=== PATIENT | female | born 1985 | race Caucasian/White ===

== ENCOUNTER 2024-12-01 11:11 | Emergency (ER) | payer OTHER, SELFPAY ==
[2024-12-01 11:20] VITALS: BP 125/86; PULSE 125; RESP 20; TEMP 36.6; O2SAT 100
--- NOTE | 2024-12-01 11:31 | ED.GENADULT ---
HPI - General Adult General Chief complaint: Psychiatric Symptoms <Constantin Quezada MD - Last Filed: 12/01/24 17:43> Stated complaint: with crisis, came for medical clearance <Constantin Quezada MD - Last Filed: 12/01/24 17:43> Time Seen by Provider: 12/01/24 11:27 <Constantin Quezada MD - Last Filed: 12/01/24 17:43> History of Present Illness HPI narrative: This is a 39-year-old female sent from [place] for medical clearance. Patient is homeless. She says she does not remember where she lives. She says she has been bouncing from hospital hospital. She has no physical complaints at this time. She denies SI HI or hallucinations. She denies use of drugs or alcohol. <Constantin Quezada MD - Last Filed: 12/01/24 17:43> Related Data Allergies/adverse reactions: Allergies Allergy/AdvReac Type Severity Reaction Status Date / Time No Known Allergies Allergy Verified 12/01/24 11:12 <Constantin Quezada MD - Last Filed: 12/01/24 17:43> [facility] Social History Social History: Social History Substance use type: unknown <Constantin Quezada MD - Last Filed: 12/01/24 17:43> Exam Narrative: APPEARANCE: No apparent distress. Head: atraumatic. EYES: EOMI, NOSE: Atraumatic NECK: Trachea midline RESPIRATORY: No increased rate of breathing CTAB CARDIOVASCULAR: Tachycardic ABDOMINAL: Non-distended MUSCULOSKELETAl: No obvious deformities NEURO: Alert. Moving 4/4 extremities SKIN:: Warm, dry. Normal color PSYCHIATRIC: Normal affect <Constantin Quezada MD - Last Filed: 12/01/24 17:43> Course Course Emergency Course: ZYCH: patient signed out pending acceptance at a psychiatric hospital. Patient has been resting comfortably in bed with no issues. <Constantin Quezada MD - Last Filed: 12/01/24 17:43> ZYCH: patient signed out pending acceptance at a psychiatric hospital. Patient has been resting comfortably in bed with no issues. 1116: Patient is no longer suicidal and would like to leave. She was never suicidal for the physician only for the crisis team. She does not want to wait for crisis to come back out for reassessment and making of a safety plan. <Michael Mosley MD - Last Filed: 12/02/24 11:17> Vital Signs Vital signs: Vital Signs Temperature 97.9 F 12/01/24 11:20 Pulse Rate 125 H 12/01/24 11:20 Respiratory Rate 20 12/01/24 11:20 Blood Pressure 125/86 12/01/24 11:20 Pulse Oximetry 100 12/01/24 11:20 Oxygen Delivery Room Air 12/01/24 11:20 Temperature 98.2 F 12/02/24 07:56 Pulse Rate 98 12/02/24 07:56 Respiratory Rate 16 12/02/24 07:56 Blood Pressure 119/81 12/02/24 07:56 Pulse Oximetry 97 12/02/24 07:56 Oxygen Delivery Room Air 12/01/24 11:20 <Constantin Quezada MD - Last Filed: 12/01/24 17:43> Vital Signs Temperature 97.9 F 12/01/24 11:20 Pulse Rate 125 H 12/01/24 11:20 Respiratory Rate 20 12/01/24 11:20 Blood Pressure 125/86 12/01/24 11:20 Pulse Oximetry 100 12/01/24 11:20 Oxygen Delivery Room Air 12/01/24 11:20 Temperature 98.2 F 12/02/24 07:56 Pulse Rate 98 12/02/24 07:56 Respiratory Rate 16 12/02/24 07:56 Blood Pressure 119/81 12/02/24 07:56 Pulse Oximetry 97 12/02/24 07:56 Oxygen Delivery Room Air 12/01/24 11:20 <Michael Mosley MD - Last Filed: 12/02/24 11:17> Medical Decision Making MDM Narrative Medical decision making narrative: -Course: 39-year-old homeless female presenting for medical clearance. Patient is medically cleared for crisis evaluation. Patient was evaluated by the psych team in she will be admitted voluntarily to a psych hospital. Per the crisis team she is endorsing suicidal ideation without a plan and hallucinations. There was no mention of either these things when questioned directly during my interview. <Constantin Quezada MD - Last Filed: 12/01/24 17:43> Vital Signs Vital Signs: Vital Signs Temperature 97.9 F 12/01/24 11:20 Pulse Rate 125 H 12/01/24 11:20 Respiratory Rate 20 12/01/24 11:20 Blood Pressure 125/86 12/01/24 11:20 Pulse Oximetry 100 12/01/24 11:20 Oxygen Delivery Room Air 12/01/24 11:20 Temperature 98.2 F 12/02/24 07:56 Pulse Rate 98 12/02/24 07:56 Respiratory Rate 16 12/02/24 07:56 Blood Pressure 119/81 12/02/24 07:56 Pulse Oximetry 97 12/02/24 07:56 Oxygen Delivery Room Air 12/01/24 11:20 <Constantin Quezada MD - Last Filed: 12/01/24 17:43> Vital Signs Temperature 97.9 F 12/01/24 11:20 Pulse Rate 125 H 12/01/24 11:20 Respiratory Rate 20 12/01/24 11:20 Blood Pressure 125/86 12/01/24 11:20 Pulse Oximetry 100 12/01/24 11:20 Oxygen Delivery Room Air 12/01/24 11:20 Temperature 98.2 F 12/02/24 07:56 Pulse Rate 98 12/02/24 07:56 Respiratory Rate 16 12/02/24 07:56 Blood Pressure 119/81 12/02/24 07:56 Pulse Oximetry 97 12/02/24 07:56 Oxygen Delivery Room Air 12/01/24 11:20 <Michael Mosley MD - Last Filed: 12/02/24 11:17> Lab Data Result diagrams: 12/01/24 12:23 12/01/24 12:23 <Constantin Quezada MD - Last Filed: 12/01/24 17:43> Labs: Lab Results 12/01/24 Range/Units 12:23 WBC 10.0 (4.5-10.0) K/mm3 RBC 3.57 L (4.2-5.4) M/mm3 Hgb 11.1 L (12.0-15.0) g/dL Hct 33.4 L (37.0-47.0) % MCV 93.6 (80-100) fl MCH 31.1 (26-34) pg MCHC 33.2 (32-36) g/dl RDW 13.4 (11.5-14.5) % Plt Count 321 (150-375) k/mm3 MPV 9.6 (7.4-10.4) fl Immature Gran % (Auto) 1.5 H (0-0.5) % Neut % (Auto) 67.9 (45.5-73.1) % Lymph % (Auto) 18.4 (18.3-44.2) % [place] % (Auto) 6.9 (2.6-8.5) % Eos % (Auto) 4.7 H (0-4.4) % Baso % (Auto) 0.6 (0.2-1.2) % Lymph # (Auto) 1.83 (0.9-3.2) K/mm3 [place] # (Auto) 0.7 H (0.1-0.6) K/mm3 Eos # (Auto) 0.5 H (0-0.3) K/mm3 Baso # (Auto) 0.1 (0.0-0.1) K/mm3 Abs Immat Gran (auto) 0.15 H (0.00-0.031) K/mm3 Absolute Neuts (auto) 6.8 H (1.3-6.7) K/mm3 Absolute Nucleated RBC 0.000 (0.0-0.012) K/mm3 Nucleated RBC % 0.0 (0.0-0.2) % Sodium 139 (137-145) mmol/L Potassium 4.7 (3.4-5.0) mmol/L Chloride 104 (98-107) mmol/L Carbon Dioxide 27 (22-30) mmol/L Anion Gap 8 (4-12) mmol/L BUN 24 H (7-17) mg/dL Creatinine 0.69 L (0.7-1.0) mg/dL Estim Creat Clear Calc 75 ml/min Estimated GFR > 60 (59 - ) Glucose 77 (65-110) mg/dL Calcium 8.9 (8.4-10.2) mg/dL Total Bilirubin 0.4 (0.2-1.3) mg/dL AST 52 H (14-36) U/L ALT 137 H (6-35) U/L Alkaline Phosphatase 151 H (38-126) U/L Total Protein 7.0 (6.3-8.2) g/dL Albumin 4.2 (3.5-5.1) g/dL TSH 0.983 (0.465-4.680) uIU/mL Urine Color Yellow (Yellow) Urine Appearance Clear (Clear) Urine pH 6.0 (5.0-9.0) Ur Specific [place] 1.009 (1.001-1.035) Urine Protein Negative (Negative) mg/dL Urine Glucose (UA) Negative (Negative) mg/dL Urine Ketones Negative (Negative) mg/dL Ur Blood (Man) Negative (Negative) Urine Nitrate Negative (Negative) Urine Bilirubin Negative (Negative) Urine Urobilinogen 0.2 (<2.0) mg/dL Add Ur Microanalysis Reviewed Leukocyte Esterase Rfl 1+ H (Negative) BREA/UL Urine RBC 0-2 (0-2) /hpf Urine WBC 0-5 (0-3) /hpf Ur Squamous Epith Cells Occasional (Few) /hpf Urine Bacteria None seen /hpf Urine Casts 0-2 Salicylates < 1.0 L (2-20) mg/dL Urine Opiates Screen Negative (Negative) Urine Methadone Screen Negative (Negative) Acetaminophen < 10 L (10-30) ug/mL Ur Barbiturates Screen Negative (Negative) Ur Phencyclidine Scrn Negative (Negative) Ur Amphetamine Screen Negative (Negative) U Benzodiazepines Scrn Negative (Negative) Urine Cocaine Screen Negative (Negative) U Cannabinoids Screen Negative (Negative) Ethyl Alcohol < 10 (<10) mg/dL Influenza A (RT-PCR) Negative (Negative) Influenza B (RT-PCR) Negative (Negative) RSV (RT-PCR) Negative (Negative) SARS-CoV-2 RNA (RT-PCR) Negative (Negative) <Constantin Quezada MD - Last Filed: 12/01/24 17:43> Lab Results 12/01/24 Range/Units 12:23 WBC 10.0 (4.5-10.0) K/mm3 RBC 3.57 L (4.2-5.4) M/mm3 Hgb 11.1 L (12.0-15.0) g/dL Hct 33.4 L (37.0-47.0) % MCV 93.6 (80-100) fl MCH 31.1 (26-34) pg MCHC 33.2 (32-36) g/dl RDW 13.4 (11.5-14.5) % Plt Count 321 (150-375) k/mm3 MPV 9.6 (7.4-10.4) fl Immature Gran % (Auto) 1.5 H (0-0.5) % Neut % (Auto) 67.9 (45.5-73.1) % Lymph % (Auto) 18.4 (18.3-44.2) % [place] % (Auto) 6.9 (2.6-8.5) % Eos % (Auto) 4.7 H (0-4.4) % Baso % (Auto) 0.6 (0.2-1.2) % Lymph # (Auto) 1.83 (0.9-3.2) K/mm3 [place] # (Auto) 0.7 H (0.1-0.6) K/mm3 Eos # (Auto) 0.5 H (0-0.3) K/mm3 Baso # (Auto) 0.1 (0.0-0.1) K/mm3 Abs Immat Gran (auto) 0.15 H (0.00-0.031) K/mm3 Absolute Neuts (auto) 6.8 H (1.3-6.7) K/mm3 Absolute Nucleated RBC 0.000 (0.0-0.012) K/mm3 Nucleated RBC % 0.0 (0.0-0.2) % Sodium 139 (137-145) mmol/L Potassium 4.7 (3.4-5.0) mmol/L Chloride 104 (98-107) mmol/L Carbon Dioxide 27 (22-30) mmol/L Anion Gap 8 (4-12) mmol/L BUN 24 H (7-17) mg/dL Creatinine 0.69 L (0.7-1.0) mg/dL Estim Creat Clear Calc 75 ml/min Estimated GFR > 60 (59 - ) Glucose 77 (65-110) mg/dL Calcium 8.9 (8.4-10.2) mg/dL Total Bilirubin 0.4 (0.2-1.3) mg/dL AST 52 H (14-36) U/L ALT 137 H (6-35) U/L Alkaline Phosphatase 151 H (38-126) U/L Total Protein 7.0 (6.3-8.2) g/dL Albumin 4.2 (3.5-5.1) g/dL TSH 0.983 (0.465-4.680) uIU/mL Urine Color Yellow (Yellow) Urine Appearance Clear (Clear) Urine pH 6.0 (5.0-9.0) Ur Specific [place] 1.009 (1.001-1.035) Urine Protein Negative (Negative) mg/dL Urine Glucose (UA) Negative (Negative) mg/dL Urine Ketones Negative (Negative) mg/dL Ur Blood (Man) Negative (Negative) Urine Nitrate Negative (Negative) Urine Bilirubin Negative (Negative) Urine Urobilinogen 0.2 (<2.0) mg/dL Add Ur Microanalysis Reviewed Leukocyte Esterase Rfl 1+ H (Negative) BREA/UL Urine RBC 0-2 (0-2) /hpf Urine WBC 0-5 (0-3) /hpf Ur Squamous Epith Cells Occasional (Few) /hpf Urine Bacteria None seen /hpf Urine Casts 0-2 Salicylates < 1.0 L (2-20) mg/dL Urine Opiates Screen Negative (Negative) Urine Methadone Screen Negative (Negative) Acetaminophen < 10 L (10-30) ug/mL Ur Barbiturates Screen Negative (Negative) Ur Phencyclidine Scrn Negative (Negative) Ur Amphetamine Screen Negative (Negative) U Benzodiazepines Scrn Negative (Negative) Urine Cocaine Screen Negative (Negative) U Cannabinoids Screen Negative (Negative) Ethyl Alcohol < 10 (<10) mg/dL Influenza A (RT-PCR) Negative (Negative) Influenza B (RT-PCR) Negative (Negative) RSV (RT-PCR) Negative (Negative) SARS-CoV-2 RNA (RT-PCR) Negative (Negative) <Michael Mosley MD - Last Filed: 12/02/24 11:17> Discharge Plan Discharge Clinical Impression: Homeless, Suicidal ideation, Hallucinations <Constantin Quezada MD - Last Filed: 12/01/24 17:43> Patient Disposition: Home, Self-Care <Constantin Quezada MD - Last Filed: 12/01/24 17:43> Condition: Stable <Constantin Quezada MD - Last Filed: 12/01/24 17:43> Instructions: Help Prevent Suicide (ED) <Constantin Quezada MD - Last Filed: 12/01/24 17:43> Additional Instructions: Return the ER if you do not feel safe at home, have thoughts of harming herself or others, or you have additional concerns. <Constantin Quezada MD - Last Filed: 12/01/24 17:43> Patient Language: Kinyarwanda <Constantin Quezada MD - Last Filed: 12/01/24 17:43> Follow-up/Referrals: PHYSICIAN NOT ON STAFF,NONSTAFF [Non-Staff] - <Constantin Quezada MD - Last Filed: 12/01/24 17:43>
[2024-12-01 12:39] LABS: Basophils Absolute Auto 0.1 K/mm3 (0.0-0.1); Basophils Percent Auto 0.6 % (0.2-1.2); Eosinophils Absolute Auto 0.5 K/mm3 (0-0.3); Eosinophils Percent Auto 4.7 % (0-4.4); Hematocrit 33.4 % (37.0-47.0); Hemoglobin 11.1 g/dL (12.0-15.0); Immature Granulocyte Absolute 0.15 K/mm3 (0.00-0.031); Immature Granulocyte Percent A 1.5 % (0-0.5); Lymphocytes Absolute Auto 1.83 K/mm3 (0.9-3.2); Lymphocytes Percent Auto 18.4 % (18.3-44.2); Mean Corpuscular HGB Conc 33.2 g/dl (32-36); Mean Corpuscular Hemoglobin 31.1 pg (26-34); Mean Corpuscular Volume 93.6 fl (80-100); Mean Platelet Volume 9.6 fl (7.4-10.4); Monocytes Absolute Auto 0.7 K/mm3 (0.1-0.6); Monocytes Percent Auto 6.9 % (2.6-8.5); Neutrophils Absolute Auto 6.8 K/mm3 (1.3-6.7); Neutrophils Percent Auto 67.9 % (45.5-73.1); Platelet Count Result 321 k/mm3 (150-375); Red Blood Count 3.57 M/mm3 (4.2-5.4); Red Cell Distribution Width 13.4 % (11.5-14.5)
[2024-12-01 12:50] LABS: Acetaminophen < 10 ug/mL (10-30); Ethanol < 10 mg/dL (<10); Salicylate < 1.0 mg/dL (2-20)
[2024-12-01 12:51] LABS: Alanine Aminotransferase 137 U/L (6-35); Albumin Level 4.2 g/dL (3.5-5.1); Alkaline Phosphatase 151 U/L (38-126); Anion Gap 8 mmol/L (4-12); Aspartate Amino Transferase 52 U/L (14-36); Bilirubin,Total 0.4 mg/dL (0.2-1.3); Blood Urea Nitrogen 24 mg/dL (7-17); Calcium 8.9 mg/dL (8.4-10.2); Carbon Dioxide 27 mmol/L (22-30); Chloride 104 mmol/L (98-107); Estimated CRCL calculation 75 ml/min; Estimated Glomerular Filt Rate > 60; Glucose 77 mg/dL (65-110); Potassium 4.7 mmol/L (3.4-5.0); Sodium 139 mmol/L (137-145)
[2024-12-01 12:54] LABS: Amphetamine Screen Urine Negative (Negative); Barbiturate Screen Urine Negative (Negative); Benzodiazepines Screen Urine Negative (Negative); Cannabinoid Screen Urine Negative (Negative); Cocaine Screen Urine Negative (Negative); Methadone Screen Urine Negative (Negative); Opiate Screen Urine Negative (Negative); Phencyclidine Screen Urine Negative (Negative)
[2024-12-01 13:01] LABS: Add Urine Microscopic? YES; Appearance Urine Clear (Clear); Bacteria Urine None Seen /hpf; Bilirubin Urine Negative (Negative); Blood Urine Negative (Negative); Color Urine Yellow (Yellow); Glucose Urine UA Negative (Negative); Ketones Urine Negative (Negative); Leukocyte Esterase Ur 1+ LEU/UL (Negative); Need Manual Microscopic Reviewed; Nitrate Urine Negative (Negative); Non Pathogenic Casts 0-2; Protein Urine Negative (Negative); RBC Urine 0-2 /hpf (0-2); Specific Grav Ur 1.009 (1.001-1.035); Squamous Epithelial Cell Urine Occasional /hpf (Few); Urobilinogen Urine 0.2 mg/dL (<2.0); WBC Urine 0-5 /hpf (0-3)
[2024-12-01 13:15] LABS: Influenza A QL RT-PCR Negative (Negative); Influenza B QL RT-PCR Negative (Negative); RSV RNA, RT-PCR Negative (Negative); SARS-CoV-2 RNA PCR Negative (Negative)
[2024-12-01 13:22] LABS: Thyroid Stimulating Hormone 0.983 uIU/mL (0.465-4.680)
--- NOTE | 2024-12-01 14:49 | PC.NURSE ---
crisis in room assessing patient at this time.
--- NOTE | 2024-12-01 18:25 | PC.NURSE ---
[facility] RN called. Due to inability to get transport for patient for three days via EMS (at this time), [facility] unable to hold the bed for that long. RN stated that they will staff the bed again tomorrow, and call [place] [facility] back to attempt admission/transport arrangemets again. bread wrapper operator updated.
[2024-12-01] MEDS: IBUPROFEN 400 MG TABLET PO (18:49)
[2024-12-01 19:35] VITALS: BP 126/78; PULSE 88; RESP 16; TEMP 36.6; O2SAT 100
--- NOTE | 2024-12-01 20:41 | PC.NURSE ---
pt unable to provide urine specimen at this time.
--- NOTE | 2024-12-01 21:26 | PC.NURSE ---
pt provided sandwich, chips, pudding and jello with 2 sodas at this time.
[2024-12-02 07:56] VITALS: BP 119/81; PULSE 98; RESP 16; TEMP 36.8; O2SAT 97
--- NOTE | 2024-12-02 08:52 | PC.NURSE ---
This RN called [facility] to check pt bed status d/t limited transfer ability to take pt to accepting facility. [place] [facility] states soonest transportation to be Monday12/04/24. Informed steelscope operator at [facility] who states that is no problem, pt is accepted to their facility and will hold the bed.
--- NOTE | 2024-12-02 08:58 | PC.NURSE ---
Called Crisis to update on [facility] acceptance/hold. Nano states she will continue to look for closer accepting facilities today and call us with updates.
--- NOTE | 2024-12-02 11:12 | PC.NURSE ---
Pt states she wants bus tokens to go to [place]. Reports she is voluntary and does not want to stay here anymore or go to [facility], that it is too far away. made aware. States to call Crisis to come re-evaluate pt.
--- NOTE | 2024-12-02 11:16 | PC.NURSE ---
Informed pt that Crisis was contacted to be re-evaluated since she expressed SI to them. Pt denies any expression of SI to [facility] and briskly left room with all belongings aggressively stating she is leaving. Arin made aware. and blood bank credit clerk made aware.
== END 2024-12-02 11:26 | disposition home or self-care (01) ==
PROVIDERS: Emergency Provider Emergency Medicine
DX: R44.3 Hallucinations, unspecified (principal); R45.851 Suicidal ideations; Z59.00 Homelessness unspecified; Z11.52 Encounter for screening for COVID-19
CPT/HCPCS: 36415; 80053; 80143; 80179; 80307; 81001; 82077; 84443; 85025; 87086; 87637; 99284; A9270